=== PATIENT | female | born 1965 | race Caucasian/White ===

== ENCOUNTER 2018-03-30 11:08 | Outpatient (CLI) | payer BC | END 2018-03-30 11:09 | disposition home or self-care (01) | LOC: DTY/OP 11:08 | DX: Z01.818 Encounter for other preprocedural examination (principal); E66.01 Morbid (severe) obesity due to excess calories; Z48.815 Encounter for surgical aftercare following surgery on the digestive system; Z98.84 Bariatric surgery status | CPT/HCPCS: 36415; 80053; 80061; 82306; 82607; 82728; 82746; 83036; 83540; 84425; 84436; 84443; 84480; 85025; 86677; 97802 ==

== ENCOUNTER 2018-04-15 10:00 | Inpatient (IN) | payer OTHER ==
[2018-04-21] MEDS ORDERED: Ketorolac Tromethamine 30 MG/ML VIAL ONE (06:07)
[2018-04-21] MEDS ORDERED: Heparin 5,000 UNITS/ML VIAL ONE (06:07)
[2018-04-21] MEDS ORDERED: Scopolamine 1.5 mg/72 hour Patch ONE (06:08)
[2018-04-21] MEDS ORDERED: Fentanyl 100 MCG/2 ML VIAL ONE ×5 (06:20→11:49)
[2018-04-21] MEDS ORDERED: Bupivacaine/Epinephrine 0.25% 30 ML VIAL ONE (06:46)
[2018-04-21] MEDS ORDERED: ceFOXitin 2 GM/50 ML Duplex BAG IVPB SCH (07:00)
[2018-04-21] MEDS ORDERED: Scopolamine 1.5 mg/72 hour Patch TOP SCH (07:00)
[2018-04-21] MEDS ORDERED: Heparin 5,000 UNITS/ML VIAL SC SCH (07:00)
[2018-04-21] MEDS ORDERED: Ketorolac Tromethamine 30 MG/ML VIAL IVP SCH (07:00)
[2018-04-21] MEDS ORDERED: Morphine Sulfate 2 MG/ML SYRINGE SLOW IVP PRN (10:40)
[2018-04-21] MEDS ORDERED: Meperidine HCl/PF 25 MG/ML VIAL SLOW IVP PRN (10:40)
[2018-04-21] MEDS ORDERED: Ondansetron HCl/PF 4 MG/2 ML Vial IVP PRN (10:48)
[2018-04-21] MEDS ORDERED: Promethazine HCl 25 MG/ML VIAL IM PRN ×2 (10:48→11:55)
[2018-04-21] MEDS ORDERED: Promethazine HCl 25 MG/ML VIAL SLOW IVP PRN (10:48)
[2018-04-21] MEDS ORDERED: Promethazine HCl 25 MG/ML VIAL ONE (11:39)
[2018-04-21] MEDS ORDERED: Ondansetron PF 4 MG/2 ML Vial IVP PRN (11:55)
[2018-04-21] MEDS ORDERED: Morphine 4 MG/ML VIAL SLOW IVP PRN (11:55)
[2018-04-21] MEDS ORDERED: diphenhydrAMINE 50 MG/ML VIAL IVP PRN (11:55)
[2018-04-21] MEDS ORDERED: Dextrose 5% in Water 1,000 ML IV PRN (11:55)
[2018-04-21] MEDS ORDERED: Dextrose 50% Abboject 50 ML SYRINGE SLOW IVP PRN (11:55)
[2018-04-21] MEDS ORDERED: Hydrocodone-Acetamin 15 ML UDCUP PO PRN (11:55)
[2018-04-21] MEDS ORDERED: hydrALAZINE 20 MG/ML VIAL SLOW IVP PRN (11:55)
[2018-04-21] MEDS ORDERED: Sodium Chloride 0.9% (PF) 10 ML VIAL FS PRN (12:02)
[2018-04-21] MEDS: D5 1/2 NS w/20 mEq KCL 1,000 ML IV SCH ×2 (13:12→21:41)
[2018-04-21] MEDS: Ketorolac Tromethamine 30 MG/ML VIAL IVP SCH ×3 (13:13→23:37)
[2018-04-21] MEDS: Acetaminophen 1,000 MG in Premix Bag 1 BAG IVPB SCH ×4 (13:13→23:41)
[2018-04-21] MEDS ORDERED: Rocuronium Bromide 10 MG/ML (10ML VIAL) ONE (13:14)
[2018-04-21] MEDS ORDERED: Dexamethasone 20 MG/5 ML VIAL ONE (13:14)
[2018-04-21] MEDS ORDERED: Ondansetron PF 4 MG/2 ML Vial ONE (13:14)
[2018-04-21] MEDS ORDERED: Vecuronium 10 MG VIAL ONE (13:14)
[2018-04-21] MEDS ORDERED: PROPOFOL 200 MG/20 ML VIAL ONE (13:14)
[2018-04-21] MEDS ORDERED: ePHEDrine 50 MG/ML VIAL ONE (13:14)
[2018-04-21] MEDS ORDERED: Lidocaine 1% PF 5 ML VIAL ONE (13:14)
[2018-04-21] MEDS ORDERED: Glycopyrrolate 0.2 MG/ML 5 ML SYRINGE ONE (13:14)
[2018-04-21 14:02] LABS: #Lymphocytes 0.4 thou/uL (1.20-3.40); #Monocytes 0.1 thou/uL (0.11-0.59); #Neutrophils 10.5 thou/uL (1.40-6.50); %Basophils 0.1 % (0.0-1.0); %Eosinophils 0.1 % (0.0-10.0); %Lymphocytes 3.9 % (21.0-51.0); Hemoglobin 13.1 g/dL (12.0-16.0); Mean Corpuscular HGB CONC 32.9 g/dL (32.0-36.0); Mean Corpuscular Hemoglobin 28.5 pg (27.0-31.0); Mean Corpuscular Volume 86.6 fL (78.0-98.0); Mean Platelet Volume 8.5 fL (7.4-10.4); Platelet Count 173 thou/uL (130-400); RBC Distribution Width 12.8 % (11.5-14.5); Red Blood Cell (RBC) Count 4.61 mill/uL (4.20-5.40); White Blood Cell (WBC) Count 11.1 thou/uL (4.8-10.8)
[2018-04-21] MEDS: Morphine 4 MG/ML VIAL SLOW IVP PRN ×2 (16:45→20:00)
[2018-04-21] MEDS ORDERED: Citalopram 20 MG TAB PO SCH (21:00)
[2018-04-22 05:30] LABS: #Lymphocytes 0.6 thou/uL (1.20-3.40); #Monocytes 0.7 thou/uL (0.11-0.59); #Neutrophils 8.8 thou/uL (1.40-6.50); %Eosinophils 0.2 % (0.0-10.0); %Monocytes 6.9 % (0.0-10.0); Mean Corpuscular HGB CONC 32.6 g/dL (32.0-36.0); Mean Corpuscular Hemoglobin 28.4 pg (27.0-31.0); Mean Corpuscular Volume 87.3 fL (78.0-98.0); Mean Platelet Volume 8.6 fL (7.4-10.4); Platelet Count 176 thou/uL (130-400); RBC Distribution Width 12.9 % (11.5-14.5); Red Blood Cell (RBC) Count 4.22 mill/uL (4.20-5.40); White Blood Cell (WBC) Count 10.1 thou/uL (4.8-10.8)
[2018-04-22] MEDS: D5 1/2 NS w/20 mEq KCL 1,000 ML IV SCH (05:46)
[2018-04-22] MEDS: Acetaminophen 1,000 MG in Premix Bag 1 BAG IVPB SCH ×2 (05:46→05:47)
[2018-04-22] MEDS: Ketorolac Tromethamine 30 MG/ML VIAL IVP SCH (05:47)
[2018-04-22 05:48] LABS: Anion Gap 9 mmol/L (10-20); BUN (Urea Nitrogen) 6 mg/dL (9.8-20.1); Calc. Creatinine Clearance 118 mL/min (70-130); Calcium 8.5 mg/dL (7.8-10.44); Carbon Dioxide 29 mmol/L (22-29); Chloride 107 mmol/L (98-107); Estimated GFR-MDRD 89; Glucose 123 mg/dL (70-105); Potassium 4.2 mmol/L (3.5-5.1); Sodium 141 mmol/L (136-145)
[2018-04-22] MEDS ORDERED: Enoxaparin Sodium 40 MG/0.4 ML SYRINGE SC SCH (09:00)
[2018-04-22] MEDS ORDERED: Pantoprazole 40 MG VIAL IVP SCH (09:00)
[2018-04-22 11:49] VITALS: BP 97/59; TEMP 99.7
--- NOTE | 2018-04-23 06:23 | OP ---
DATE OF PROCEDURE: 04/21/2018 PREOPERATIVE DIAGNOSES: History of morbid obesity, persistent adjustable laparoscopic gastric band dysfunction. OPERATION PERFORMED: Removal of adjustable gastric band and port, laparoscopic vertical sleeve gastrectomy using the ViSiGi device. ANESTHESIA: General endotracheal. INDICATIONS: The patient is a 53-year-old white female. She had a lap band placed in [place] several years ago. She has been having persistent problems with nausea, vomiting, and reflux when it was adjusted appropriately, and weight regain whenever fluid is aspirated from the band. Due to multiple ongoing persistent problems, she has requested band removal and conversion to a sleeve gastrectomy to avoid the weight regain that would be anticipated by band removal. DESCRIPTION OF OPERATION: Informed consent was obtained. The patient was taken to the operating room, where general endotracheal anesthesia was obtained with the patient in supine position. Abdomen was prepped with ChloraPrep and draped in sterile fashion. Local anesthetic was infiltrated using 0.25% Marcaine with epinephrine. A 5 mm supraumbilical incision was created through which Veress needle was passed into the peritoneal cavity. Pneumoperitoneum was established using carbon dioxide up to a pressure of 15 mmHg. A 5 mm trocar port was passed through the same incision and laparoscopic camera was passed through this port. Two additional right-sided ports were placed. These were 5 mm right subcostal port and 12 mm right paramedian port. There were some omental adhesions up to the anterior abdominal wall in the area of the port in the left abdomen. These omental adhesions were taken down using LigaSure. Two additional ports were placed in the left abdomen, using a 5 mm subcostal port and 15 mm paramedian port. The 15 mm port was placed immediately superior to the palpable port from her lap band. The patient was placed into reverse Trendelenburg position and a final 5 mm epigastric incision was created through which Yael retractor was passed into the abdominal cavity and used to retract the left lobe of the liver. Although she did not have a fatty liver, she had an unusual lobulation that made it difficult to retract the entire left lobe at one time, as the lobulation tended to fall within the hollow space of the Yael. Nonetheless, I was able to retract the liver adequately to see what I needed to on the stomach. I began the dissection by freeing up adhesions to the underside of the liver. This was done using meticulous dissection with the hook electrocautery. When the liver was completely freed, it was further retracted and attention was turned to the stomach. The scar tissue and capsule around the band were carefully dissected on the lesser curvature side. I then carefully dissected the gastrogastric plication. This had been created with permanent sutures that appeared to be Prolene. I carefully unfolded all of gastric plication over the band in an attempt to restore normal gastric anatomy. At that point, I removed the band from around the upper stomach and placed it in the lower abdomen. I then dissected the capsule off the anterior and lateral aspects of the stomach, where it could be visualized. There was extensive scar tissue on the greater curvature side. I mobilized as much of this as possible. I decided to address the rest of it as I mobilized the greater curvature. The pylorus was identified and beginning 5 cm proximal to the pylorus, I took down all fatty and vascular tissue from the greater curvature using the LigaSure in an ascending fashion. Up near the spleen, the short gastrics were divided in a similar fashion and the stomach was completely from the spleen. As mentioned, there was still extensive scar tissue in this area. I spent a lengthy period of time completely mobilizing the cardia and upper portion of the fundus of the stomach in order to restore normal gastric anatomy. This was done without any blood loss or injury to the stomach. I removed some additional capsular scar tissue off stomach and removed some adhesions posteriorly from the stomach as well. At this point, the ViSiGi device was advanced down into the stomach. It was positioned at the pylorus and placed to suction achieving excellent gastric decompression. The sleeve gastrectomy was then performed with the series of fires of the [place] stapler using the green load followed by a gold load and a couple of blue loads. I used an additional gold load as I traversed the part of the stomach with the band had been secondary to some thickening of the tissue in this area. When the stomach was completely transected up near the angle of His, the transected portion of the stomach was replaced laterally and inferiorly. Attention was turned to the staple line. Hemoclips were placed on the staple line in several areas. Maximum hemostasis was ensured with this. I then insufflated the ViSiGi device with the staple line largely under water and irrigating the rest of it. There was no evidence of leak in any location nor was any evidence of bleeding. Of note, great care being taken to avoid narrowing via the sleeve at either the incisor or the gastroesophageal junction. The band was then removed from within the abdomen after dividing the tubing just proximal to the band. The resected portion of stomach was removed also through the 15 mm port site. The fascia was then closed with 0 Vicryl suture using a GraNee needle in a [id number] fashion. Not mentioned above is that at some point during the upper abdominal dissection, an injury occurred to the anterior aspect of the lower pole of the spleen. I expect this was an instrument that connected inadvertently. The injury was not seen, but bleeding was appreciated. I initially attempted to control this with high-flow electrocautery, but this was of course unsuccessful. I was able to control this by applying Hossein powder to the area of the obvious injury on 3 occasions. I only used one container of the Hossein, but applied it focally to the area of bleeding and then rechecked it on two occasions. On subsequent two occasions, the bleeding was much and much lower volume and almost stopped, but I irrigated the area and placed a little bit more until I was certain that appropriate hemostasis had been obtained. The Yael retractor and all ports and instruments were removed under direct vision. I did approximate the fascia at the 12 mm port site with 0 Vicryl suture using a GraNee needle as well. Attention was then turned to the port from her lap band. The incision at the 15 mm port site was extended slightly and dissection was carried down onto the port. This was carefully dissected and removed with remainder of the port tubing. As I removed this, there appeared to be some mesh between the port in the anterior abdominal wall. A portion of this mesh was removed, but most of it was left in place. I suspect this has been an attachment technique used by her surgeon in [place]. It was not infected or inflamed, and did not seem to require removal. The 15 mm port site was extensively irrigated and all irrigant was aspirated. Additional local anesthetic was infiltrated in each port site. Skin edges were approximated with 4-0 Monocryl subcuticular suture. Dermabond was placed externally. There were no complications. Blood loss, which was almost entirely from the spleen, was probably around 100 to 150 mL. Job ID: [id number]
--- NOTE | 2018-04-27 11:34 | PQF ---
Asha Freeman, BIANCA Bedolla MD [id number] CLINICAL DOCUMENTATION CLARIFICATION FORM: POST DISCHARGE Addendum to original discharge summary date: ____ Late entry note date: __ DATE: 04/27/18 ATTN: Dr. Smith, 11: 22AM Please exercise your independent, professional judgment in responding to the clarification form. Clinical indicators are provided on the bottom of this form for your review Please check appropriate box(s): [ ] Accidential Puncture/Laceration of Spleen [ x ] Inherent to Procedure [ ] Other diagnosis [ ] Unable to determine In addition, please specify: Present on Admission (POA): [ ] Yes [ x ] No [ ] Unable to determine For continuity of documentation, please document condition throughout progress notes and discharge summary. Thank You. CLINICAL INDICATORS - SIGNS / SYMPTOMS / LABS "At some point during the upper abdominal dissection an injury occurred to the anterior aspect of the lower pole ofthe spleen. I expect this was an instrument that connected inadverently. The injury was not see but bleeding appreciated."- -04/21 OP note 'I then dissected the capsule off the anterior and lateral aspect of stomach, where it could be visualized. There was extensive scar tissue on the greater curvature side. I mobilized as much of this as possible. I decidedto address the rest of it address the rest of it as I mobilzed the greater curvature up near the spleen, the short gastrics were divided in similar fashion and the stomach was completely from the spleen. As mentioned there was extensive scar tissue in this area".-04/21 OP note RISK FACTORS History of morbid obesity, persistent adjustable laparoscopic gastric band dysfunction---04/21 OP note. TREATMENTS: " Initally attempted to control this with high-flow electrocautery, but this of course was unsuccessful, I was able to control this by applying Hossein powder to the area of the obvious injury". Thank you, Cassandra Encarnacion, [facility] 04/27/18 11:31AM (This form is maintained as a part of the permanent medical record) 2015 [employer] All Rights Reserved Cassandra [email or web address] [phone] MTDD
== END 2018-04-22 12:37 | disposition home or self-care (01) | DRG 909 ==
LOC: SURG A 04-21 05:49 → SURG B 04-21 12:26
PROVIDERS: ADMIT Specialist; ATTEND Specialist
PROC: 0DB64Z3 Excision of Stomach, Percutaneous Endoscopic Approach, Vertical (ICD-10-PCS; principal; 2018-04-21)
PROC: 0DP64CZ Removal of Extraluminal Device from Stomach, Percutaneous Endoscopic Approach (ICD-10-PCS; 2018-04-21)
DX: T85.898A Other specified complication of other internal prosthetic devices, implants and grafts, initial encounter (principal); Y83.8 Other surgical procedures as the cause of abnormal reaction of the patient, or of later complication, without mention of misadventure at the time of the procedure; K21.9 Gastro-esophageal reflux disease without esophagitis; F41.9 Anxiety disorder, unspecified; Z86.39 Personal history of other endocrine, nutritional and metabolic disease; Z98.84 Bariatric surgery status; Z79.899 Other long term (current) drug therapy; Z83.3 Family history of diabetes mellitus; Z82.49 Family history of ischemic heart disease and other diseases of the circulatory system
CPT/HCPCS: 36415; 80048; 85025; 88307; 88312; C9113; J0131; J1100; J1644; J1650; J1885; J2001; J2270; J2405; J2550; J2704; J3010; J3490